=== PATIENT | female | born 2000 | race Caucasian/White ===

== ENCOUNTER 2023-10-18 18:20 | Emergency (ER) | payer OTHER ==
[~2023-10-18] VITALS: Ht 157.5 cm; Wt 68.0 kg
[2023-10-18 18:31] VITALS: BP 148/95; PULSE 112; RESP 18; TEMP 98; O2SAT 98
[2023-10-18] MEDS ORDERED: IBUPROFEN 600 MG TAB PO ONE (18:55)
[2023-10-18] MEDS ORDERED: IBUP-1842 PO (19:12)
== END 2023-10-18 19:37 | disposition home or self-care (01) ==
LOC: MED 18:20
DX: S63.602A Unspecified sprain of left thumb, initial encounter (principal); S40.012A Contusion of left shoulder, initial encounter; Z79.1 Long term (current) use of non-steroidal anti-inflammatories (NSAID); V43.52XA Car driver injured in collision with other type car in traffic accident, initial encounter; Y93.89 Activity, other specified; Y92.410 Unspecified street and highway as the place of occurrence of the external cause; Y99.8 Other external cause status
CPT/HCPCS: 73000; 73130; 81025; 99284